=== PATIENT | female | born 1980 | race Caucasian/White ===

== ENCOUNTER 2020-11-15 10:51 | Outpatient (REF) | payer MEDICAID, OTHER, SELFPAY ==
--- NOTE | ~2020-11-15 | MM_ITS ---
EXAMINATION: MM DIAGNOSTIC DIGITAL BREAST TOMOSYNTHESIS, BILATERAL US DIAGNOSTIC ULTRASOUND BREAST, BILATERAL CLINICAL INFORMATION: 40-year-old with six-month history prickly feeling bilateral medial breasts. Also history 2 brief episodes clear nipple discharge bilateral breasts with pressure/squeezing. No spontaneous discharge. No known family history breast cancer. No prior history breast imaging. The lifetime risk of breast cancer based on the Tyrer-Cuzick Model is 8%. COMPARISON: None (current study represents initial baseline exam). TECHNIQUE: Digital breast tomosynthesis is performed in both the craniocaudal and mediolateral oblique views along with computer-aided detection (CAD). Synthesized 2D images are generated from the tomosynthesis. Ultrasound bilateral breasts is targeted to the retroareolar and periareolar regions as well as the areas of clinical concern bilateral medial breasts. Grayscale imaging and color Doppler are performed without and with harmonics. FINDINGS: There are scattered areas of fibroglandular density (ACR BI-RADS breast composition Category b). Breast tissue composition borders on heterogeneously dense. There is no significant mass or architectural abnormality. No abnormal calcifications. No focal duct ectasia. There is no skin thickening or coarsening of the Reginald's ligaments. The axilla are unremarkable. Ultrasound right breast shows no cystic or solid mass, architectural abnormality, or focal duct ectasia. There is no skin thickening or edema tracking in the soft tissue planes. Ultrasound left breast demonstrates 4 small simple cyst scattered in the 9:00 region anterior breast, largest only 0.8 x 0.4 cm. There is no solid mass or architectural abnormality. No focal duct ectasia. There is no skin thickening or edema tracking in the soft tissue planes. Results are discussed with the patient at time of visit, using an automotive generator repairer. MM/MM tomosynthesis diagnostic BI IMPRESSION: 1. No mammographic evidence of malignancy or focal inflammatory changes. 2. Several small cysts left breast under 1 cm. ASSESSMENT: BI-RADS 2: Benign RECOMMENDATION: 1. Patient should be managed based on the clinical impression. 2. If there is recurrent bilateral nipple discharge, then further assessment with laboratories/endocrine evaluation should be considered. 3. Otherwise, routine annual screening mammography. This patient's information was entered into a reminder system with a target due date for their next mammogram.
== END 2020-11-15 10:52 | disposition home or self-care (01) ==
LOC: HO.MAMMO 10:51
PROVIDERS: Visit Provider Nurse Practitioner Community Health
DX: N64.4 Mastodynia (principal); N64.52 Nipple discharge
CPT/HCPCS: 76642; 77062; 77066